=== PATIENT | male | born 1960 | race Caucasian/White ===

== ENCOUNTER 2019-11-15 06:57 | Emergency (ER) | payer BC ==
--- NOTE | 2019-11-15 07:34 | PHYS DOC ---
Adult General Chief Complaint Chief Complaint: CPR/FULL ARREST HPI HPI Patient is a 59 year old male with history of diabetes mellitus and pacemaker/defibrillator in place who presents via EMS with cardiorespiratory arrest. Patient had a witnessed cardiorespiratory arrest after complaint of shortness of breath. EMS reported that they were informed at 0620 for unresponsive patient and at arrival of EMS at 0623 he had ventricular tachycardia with no pulse or spontaneous respiration. The CPR with chest compression and ambo bagging was started by EMS and patient had several shock and epinephrine without response and was pulseless with V. tach and ventricular fibrillation on monitor. Patient brought in to emergency room at 0656 with CPR in progress. Defibrillator was stopped with applying magnet on the pacemaker and patient had PEA without spontaneous pulse and respiration without CPR. CPR was continued and Patient was intubated at 0705. Review of Systems Review of Systems Unresponsive patient, unable to obtain Current Medications Current Medications Current Medications Medications (Trade) Dose Ordered Sig/Michelle Start Time Stop Time Status Last Admin Dose Admin Epinephrine HCl (EPINEPHrine SYRINGE) 1 mg 1X ONCE 11/15/19 09:00 11/15/19 09:01 DC 11/15/19 07:07 1 MG Sodium Bicarbonate (Sodium Bicarb Adult 8.4% Syr) 50 meq 1X ONCE 11/15/19 09:00 11/15/19 09:01 DC 11/15/19 07:06 50 MEQ Sodium Chloride 1,000 ml @ 1,000 mls/hr 1X ONCE 11/15/19 09:00 11/15/19 09:59 DC 11/15/19 07:18 1,000 MLS/HR Allergies Allergies Allergies Coded Allergies Type Severity Reaction Last Updated Verified Unable to Assess 11/15/19 No Physical Exam Physical Exam Constitutional: Unresponsive CPR in progress HENT: Atraumatic. Eyes: Fixed dilated pupil. Neck: Atraumatic Cardiovascular: CPR in progress, no spontaneous t cardiac activity without CPR Lungs & Thorax: No spontaneous respiration. Abdomen:Atraumatic. Extremities: Atraumatic, no spontaneous pulses without CPR Neurologic: Unresponsive. Psychologic: Unresponsive. Current Patient Data Lab Values Laboratory Tests Test 11/15/19 07:12 Glucose (Fingerstick) 312 mg/dL (70-99) H EKG EKG [] Radiology/Procedures Radiology/Procedures [] Course & Med Decision Making Course & Med Decision Making Evaluation of patient in ER showed 59-year-old male patient brought in by EMS with CPR in progress for 33 minutes. Patient was intubated in ER and CPR was continued and pacemaker was stopped. Patient had several doses of epinephrine and bicarb without responding to CPR and was pronounced at 0720 after 1 hour of unsuccessful CPR. Dr. Mohan primary care physician was informed at 0842 and agreed to write certificate. Dragon Disclaimer Dragon Disclaimer This electronic medical record was generated, in whole or in part, using a voice recognition dictation system. Departure Departure Impression: Primary Impression: Cardiorespiratory arrest Disposition: 20 (719) Condition: Referrals: NO PCP (PCP) Critical Care Time Critical care time was 40 minutes exclusive of procedures. Intubation Procedure Intubation Procedure Intub Indication: Respiratory arrest Consent: Unable to give consent due to emergent nature. Medications Used: see nursing note Procedure: . Intubation was performed at 0705 while CPR was in progress with direct visualization of cord via glidescope with immunization of 7.5 endotracheal tube with 1 time trying and decub was secureby device. Initial confirmation of placement included bilateral breath sounds, tube fogging, adequate chest rise, change of the colon of CO2 detector, adequate pulse oximetry reading. Complications: none. MIGUE SAWYER MD Nov 15, 2019 07:34
[2019-11-15] MEDS ORDERED: IV NORMAL SALINE 1000ML BAG 1,000 ML IV ONE ×2 (09:00)
[2019-11-15] MEDS ORDERED: SODIUM BICARB ADULT 8.4% 50 MEQ/50 ML DISP.SYRIN. IV ONE ×2 (09:00)
[2019-11-15] MEDS ORDERED: EPINEPHrine SYRINGE 1 MG/10 ML SYRINGE IV ONE ×7 (09:00)
== END 2019-11-15 10:35 | disposition expired ==
LOC: ER 06:57
DX: I46.9 Cardiac arrest, cause unspecified (principal); R06.02 Shortness of breath; I47.1 Supraventricular tachycardia
CPT/HCPCS: 31500; 82962; 92950; 96374; 96375; 96376; 99291; J0171; J7030